=== PATIENT | female | born 1955 | race Caucasian/White ===

== ENCOUNTER 2023-12-05 12:07 | Emergency (ER) | payer OTHER ==
[~2023-12-05] VITALS: Ht 147.3 cm; Wt 47.2 kg
[2023-12-05 12:26] VITALS: BP 202/112; PULSE 81; RESP 18; TEMP 97.5; O2SAT 99
[2023-12-05] MEDS: ENALAPRIL 10 MG TAB PO ONE (14:43)
[2023-12-05] MEDS ORDERED: LISI40TA12 PO (14:47)
[2023-12-05 16:10] VITALS: BP 163/98; PULSE 78; RESP 20; O2SAT 98
== END 2023-12-05 16:10 | disposition home or self-care (01) ==
LOC: MED 12:07
DX: I10 Essential (primary) hypertension (principal); Z98.890 Other specified postprocedural states
CPT/HCPCS: 93005; 99283